=== PATIENT | male | born 1990 | race Caucasian/White ===

== ENCOUNTER → 2023-08-29 | Outpatient (CLI) | payer OTHER, SELFPAY ==
--- NOTE | 2023-08-29 08:00 | VAS_PTH ---
PATHOLOGY RESULTS PATIENT: GUSTABO LIZARRAGA LOC: [facility] U#:[id number] AGE/SX: 32/M ROOM: RE08/29/[address]: Dr. Will Bae MD : 1990 BED: DIS: 08/29/2023 SPEC #: [id number] RECD: 08/30/23 07:18 STATUS: BALAJI TAI #: [id number] LIZETTE: 08/29/23 08:[address]: Will Bae DEPT: SURGICAL PATHOLOGY RECD BY: Katya Nelson ENTERED: 08/30/23 07:18 SP TYPE: VAS Tissues: Vas deferens, NOS Vas deferens, NOS Procedures: Surgery Specimen Level II HEADER OPERATION: Bilateral partial vasectomy PRE-OP DIAGNOSIS: Sterilization TISSUE SUBMITTED: A- Left vas deferens, B- Right vas deferens MICROSCOPIC DIAGNOSIS A. Left vas deferens, segmental vasectomy: Complete cross-section of vas deferens with no pathologic change. B. Right vas deferens, segmental vasectomy: Complete cross-section of vas deferens with no pathologic change. AM: 09/02/2023 MICROSCOPIC DESCRIPTION Slides are reviewed. GROSS DESCRIPTION A - Received is one container designated Left vas deferens. The specimen consists of a tubular segment of lee soft tissue measuring 0.7 cm in length and 0.2 cm in diameter. The specimen is sectioned and submitted entirely in one cassette. B - Received is one container designated Right vas deferens. The specimen consists of a tubular segment of lee soft tissue measuring 0.5 cm in length and 0.3 cm in diameter. The specimen is sectioned and submitted entirely in one cassette. / SJ:mr 08/30/23 TC:4 CPT: 45437 x2
--- OUTSIDE RECORDS SUMMARY | 2023-08-29 22:16 | XMS RPT_ITS | CCD ---
Author Name Unknown Address [address] [place] [address] Organization [facility] Care Team Providers Care Vacuum Truck Driver Name Role Phone JUAN LEBRON MD Attending Unavailable RADHA CORNEJO, RENEE Primary Care UnavailHANNAH Shook Attending Unavailable PHYSICIAN, NONE Primary Care Unavailable Problems Problem Classification Problem Date Documented Da te Episodic/Chronic Diseases of mouth; excluding dental (2 sources) Oral mucositis (ulcerative), unspecified; Translations: [Oral mucositis (ulcerative), unspecified] Onset: 07-03-2022 Episodic Other gastrointestinal disorders (2 sources) Personal history of other diseases of the digestive system; Translations: [Personal history of other diseases of the digestive system] Onset: 07-03-2022 Episodic Results Test Name Value Interpretation Reference Range Facil ity Encounters Encounter Date Encounter Type Care Provider Facility Start: 07-03-2022 End: 07-08-2022 ambulatory JUAN LEBRON MD Facility:A Start: 03-16-2022 End: 03-16-2022 ambulatory HANNAH MOY Facility:A Payers Date Payer Category Payer Unknown [id number] 1990 Unknown [id number] 1990 Unknown [id number] Summary Purpose Family History No Family History Records Found Advance Directives No Advanced Directives Records Found Additional Source Comments (unrecognized sect ion and content) No Status Records Found INFORMATION SOURCE (unrecogn ized section and content) FOR RECORDS PERTAINING TO PATIENTS WHO ARE OR HAVE BEEN ENROLLED IN A CHEMICAL DEPENDENCY/SUBSTANCEABUSE PROGRAM, SOME INFORMATION MAY BE OMITTED. This clinical summary was aggregated from multiple sources. Caution should be exercised in using it in the provision of clinical care. This summary normalizes information from multiple sources, and as a consequence, information in this document may materially change the coding, format and clinical context of patient data. In addition, data may be omitted in some cases. CLINICAL DECISIONS SHOULD BE BASED ON THE PRIMARY CLINICAL RECORDS. [employer] [facility]. provides no warranty or guarantee of the accuracy or completeness of information in this document.
== END | disposition home or self-care (01) ==
LOC: LABSPEC 15:56
PROVIDERS: Referring Provider Surgery; Visit Provider Surgery
DX: Z30.2 Encounter for sterilization (principal)
CPT/HCPCS: 88302

== ENCOUNTER → 2023-10-28 | Outpatient (CLI) | payer OTHER, SELFPAY ==
--- NOTE | 2023-10-28 | CYSPIN_PTH ---
PATIENT: GUSTABO LIZARRAGA [facility] U#:[id number] AGE/SX: 32/M ROOM: RE10/28/[address]: Dr. Will Bae MD : 1990 BED: DIS: 10/28/2023 SPEC #: [id number] RECD: 10/28/23 15:04 STATUS: BALAJI TAI #: [id number] LIZETTE: 10/28/23 00:[address]: Will Bae DEPT: CYTOLOGY RECD BY: Jenniffer Ortiz ENTERED: 10/28/23 15:04 SP TYPE: CYSPIN FL OTHR DR: No Primary Care Phys Tissues: Cytologic material, NOS Procedures: Pap Stain (control) Special Stain Group II Cytospin Fluid HEADER OPERATION: Post vasectomy PRE-OP DIAGNOSIS: Post vasectomy status TISSUE SUBMITTED: Seminal fluid for cytology DIAGNOSIS CYTOLOGY Seminal fluid for cytology (cytospin): No spermatozoa identified. AM/mr 10/29/23 CYTOLOGY STUDY Slides are reviewed. CYTOLOGY GROSS Received is 3.0 ml of opaque viscous fluid labeled with the patient's name and and designated per the requisition as Seminal fluid. Submitted for cytology preparation including cell block. Mr 10/28/23 TC:5 CPT: 04437
[2023-10-28 14:33] LABS: Cytology, Semen SEE PATHOLOGY REPORT
== END | disposition home or self-care (01) ==
LOC: PAVLAB 14:22 → LABSPEC 14:24
PROVIDERS: Referring Provider Surgery; Visit Provider Surgery
DX: Z30.2 Encounter for sterilization (principal)
CPT/HCPCS: 88108; 88313

== ENCOUNTER → 2023-11-07 | Outpatient (CLI) | payer OTHER, SELFPAY ==
--- NOTE | 2023-11-07 | CYSPIN_PTH ---
PATIENT: GUSTABO LIZARRAGA [facility] U#:[id number] AGE/SX: 32/M ROOM: RE11/07/[address]: Dr. Will Bae MD : 1990 BED: DIS: 11/07/2023 SPEC #: [id number] RECD: 11/07/23 13:49 STATUS: BALAJI TAI #: [id number] LIZETTE: 11/07/23 00:[address]: Will Bae DEPT: CYTOLOGY RECD BY: Jenniffer Ortiz ENTERED: 11/07/23 15:11 SP TYPE: CYSPIN FL OTHR DR: No Primary Care Phys Tissues: Cytologic material, NOS Procedures: Pap Stain (control) Special Stain Group II Cytospin Fluid HEADER OPERATION: Post vasectomy PRE-OP DIAGNOSIS: Post vasectomy status TISSUE SUBMITTED: Seminal fluid for cytology DIAGNOSIS CYTOLOGY Seminal fluid for cytology (cytospin): No spermatozoa identified. AM/mr 11/08/2023 CYTOLOGY STUDY Slides are reviewed. CYTOLOGY GROSS Received is <1.0 ml of opaque viscous fluid labeled with the patient's name and and designated per the requisition as Seminal fluid. Submitted for cytology preparation including cell block. Mr 11/07/2023 TC:5 CPT: 65364
[2023-11-07 13:46] LABS: Cytology, Semen SEE PATHOLOGY REPORT
== END | disposition home or self-care (01) ==
LOC: LABSPEC 13:22
PROVIDERS: Referring Provider Surgery; Visit Provider Surgery
DX: Z30.2 Encounter for sterilization (principal)
CPT/HCPCS: 88108; 88313